=== PATIENT | female | born 1995 | race American Indian/Alaskan Native ===

== ENCOUNTER 2019-01-29 14:18 | Emergency (ER) | payer MEDICAID ==
[2019-01-29 14:35] VITALS: BP 131/92
--- NOTE | 2019-01-29 14:35 | Emergency Department Report ---
Blank Doc - Documentation Documentation: 23 y/o female was trying to catch a clean knife and accidently cut right thumb on blade. here for wound check and sutures. She is 16 weeks .
--- NOTE | 2019-01-29 16:08 | Emergency Department Report ---
ED Laceration HPI - HPI Chief Complaint: Wound/Laceration Stated Complaint: FINGER LAC Time Seen by Provider: 01/29/19 14:34 Location: Upper Extremity Severity: mild Tetanus Status: Up to Date Laceration Symptoms: No Foreign Body Sensation, No Numbness, No Weakness, No P ain Other History: She was attentive 23-year-old female presents to ED today complaining of laceration to her right thumb that sustained earlier today while at work. Patient states that she was trying to catch a knife from falling and accidentally grazed the thumb. She states minimal bleeding but resolved. She states her vaccinations are up to date. ED Review of Systems ROS: Stated complaint: FINGER LAC Other details as noted in HPI Comment: All other systems reviewed and negative ED Past Medical Hx - Past Medical History Previous Medical History?: No - Surgical History Past Surgical History?: No - Social History Smoking Status: Never Smoker Substance Use Type: None - Medications Home Medications: Home Medications Medication Instructions Recorded Confirmed Last Taken Type Ibuprofen [Motrin] 600 mg PO Q8H PRN #20 tablet 01/29/19 Unknown Rx cephALEXin [Keflex] 500 mg PO Q12HR #10 cap 01/29/19 Unknown Rx Laceration Physical Exam - Exam General: Vital signs noted. No distress. Alert and acting appropriately. Laceration Location: Upper Extremity (right thumb) Full Body Front + Back: 1 - small mild 0.3 abrasion to the thumb not involving nail bed. Laceration Exam: Yes Normal Distal CMS, No Foreign Body, No Exposed Tendon, Vessel, or Nerve, No Tendon Injury ED Course Vital Signs 01/29/19 14:33 Temperature 98.3 F Pulse Rate 104 H Respiratory 18 Rate Blood Pressure 131/92 O2 Sat by Pulse 100 Oximetry ED Medical Decision Making - Medical Decision Making 23-year-old female presents with small minor abrasion to the right thumb. Abrasion was cleaned with 50 mL of normal saline.Abrasion was closed with Dermabond. Wound was approximated made it well with Dermabond. Discuss with the patient to follow-up with the primary care physician in 4 days. Patient is in no acute distress. Vital signs are normal. She understands instructions given. Antibiotics given for prophylaxis patient tetanus is up-to-date Critical care attestation.: If time is entered above; I have spent that time in minutes in the direct care of this critically ill patient, excluding procedure time. ED Disposition Clinical Impression: Laceration of finger Disposition: DC-01 TO HOME OR SELFCARE Is pt being admited?: No Does the pt Need Aspirin: No Condition: Stable Instructions: Laceration (ED), Skin Adhesive Care (ED) Additional Instructions: Make sure to follow up with the primary care physician as discussed. Take all your medications as you've been prescribed. If you have any worsening symptoms or develop new symptoms please return to ED immediately. Prescriptions: cephALEXin [Keflex] 500 mg PO Q12HR #10 cap Ibuprofen [Motrin] 600 mg PO Q8H PRN #20 tablet PRN Reason: Pain Referrals: PHYLLIS ZLEAYARIVERTON MD FABIANA [Primary Care Provider] - 3-5 Days [facility] [Outside] - 3-5 Days Forms: Work/School Release Form(ED)
[2019-01-29] MEDS ORDERED: IBUPROFEN PO ONE (16:14)
== END 2019-01-29 16:54 | disposition home or self-care (01) ==
LOC: ED 14:18
DX: S61.011A Laceration without foreign body of right thumb without damage to nail, initial encounter (principal); Z79.899 Other long term (current) drug therapy; W22.8XXA Striking against or struck by other objects, initial encounter; Y93.89 Activity, other specified; Y92.89 Other specified places as the place of occurrence of the external cause; Y99.0 Civilian activity done for income or pay
CPT/HCPCS: 99282